=== PATIENT | male | born 1975 | race African-American/Black ===

== ENCOUNTER 2020-01-06 16:57 | Inpatient (IN) | payer MEDICAID ==
[~2020-01-06] VITALS: Ht 165.1 cm; Wt 59.4 kg
[2020-01-06 17:20] VITALS: BP 169/107
--- NOTE | 2020-01-06 17:30 | NUR ---
PT C/O N/V/D SINCE YESTERDAY. PT PRESENTS WITH DIAPHORESIS AND IRREGULAR HEAT BEATS, ABDOMINAL PAIN, AND GENERALIZED WEAKNESS. DENIES CP OR SOB AT THIS TIME. PT AOX 4 AFIBRILE , AMBULATORY WITH STEADY GAIT , PINK PALPEBRAL CONJUNCTIVA , ANICTERIC SCLERA , MOIST MUCUS MEMBRANE , SCE , FLAT SOFT ABDOMEN. PMH: DENIES
--- NOTE | 2020-01-06 17:57 | NUR ---
xray at bedside.
[2020-01-06 18:06] LABS: BASOPHILS % (AUTO) 0.3 % (0.0-2.0); HEMATOCRIT 50.5 % (36-52); HEMOGLOBIN 16.6 g/dL (12.0-18.0); LYMPHOCYTES # (AUTO) 1.1 K/uL (2.0-11.5); LYMPHOCYTES % (AUTO) 12.4 % (20.5-51.1); MEAN CORPUSCULAR HEMOGLOBIN 31 pg (27-31); MEAN CORPUSCULAR HGB CONC 33 g/dL (33-37); MONOCYTES # (AUTO) 0.2 K/uL (0.8-1.0); MONOCYTES % (AUTO) 2.6 % (1.7-9.3); NEUTROPHILS # (AUTO) 7.7 K/uL (1.8-7.7); NEUTROPHILS % (AUTO) 84.7 % (42.2-75.2); PLATELET COUNT (AUTO) 385 K/uL (140-450); RED BLOOD CELL COUNT(AUTO) 5.43 MIL/uL (4.20-6.10); RED CELL DISTRIBUTION WIDTH 14.2 % (11.6-13.7); WHITE BLOOD COUNT (AUTO) 9.1 K/uL (4.8-10.8)
--- NOTE | 2020-01-06 18:06 | NUR ---
ask pt permission to disclose information to his hector on the phone.
[2020-01-06] MEDS ORDERED: NACL 0.9% 1,000 ML IV ONE (18:10)
[2020-01-06 18:30] LABS: ALBUMIN 5.1 g/dL (3.4-5.0); ANION GAP 19.9 (8-16); CARBON DIOXIDE 24.7 mmol/L (21-32); CREATININE 1.1 mg/dL (0.6-1.3); POTASSIUM 3.6 mmol/L (3.5-5.1); TOTAL BILIRUBIN 0.6 mg/dL (0.0-1.0)
[2020-01-06 19:09] LABS: THYROID STIMULATING HORMONE 0.62 uIU/mL (0.34-3.74)
--- NOTE | 2020-01-06 19:18 | NUR ---
GAVE REPORT TO SERGIO BENITO , PT COMFORTABLE IN BED SIDE RAIL UP AND LOCK AT LOWEST POSITION.
[2020-01-06 19:22] LABS: PROTHROMBIN TIME 10.1 secs (10.8-13.4)
[2020-01-06] MEDS ORDERED: ENOXAPARIN 60 MG/0.6 ML SYR SUBQ SCH ×2 (19:55→22:06)
--- NOTE | 2020-01-06 20:19 | NUR ---
PT APPEARS TO BE SLEEPING. REMAINS CONNECTED TO BED SIDE MONITOR. R/R EQUAL, AND UNLABORED. NO DISTRESS NOTED. SIDE RAIL X2, BED IN LOW POSITION WILL CONTINUE TO MONITOR.
--- NOTE | 2020-01-06 20:54 | NUR ---
Patient will be admitted to care of DR. SENA. Admited to TELE. Will go to room 105 A. Belongings list completed. Report to SERGIO SANDERS.
--- NOTE | 2020-01-06 21:20 | NUR ---
INFORMED DR. SENA THAT THE PTS' BP IS 150/112 (124); 116 HEART RATE; AND THAT ON THE TELEMETRY STRIP UNCONTROLLED AFIB AND PVC'S
[2020-01-06] MEDS ORDERED: guaiFENesin DM 200/20 MG-10 ML 10 ML UDC PO PRN (21:35)
[2020-01-06] MEDS ORDERED: ZOLPIDEM 5 MG TAB PO PRN (21:35)
[2020-01-06] MEDS ORDERED: POTASSIUM CHLORIDE 10 MEQ TABER PO PRN (21:35)
[2020-01-06] MEDS ORDERED: HYDROcodone/APAP 7.5/325 MG 1 TAB PO PRN (21:35)
[2020-01-06] MEDS ORDERED: DOCUSATE SODIUM 100 MG GELCAP PO PRN (21:35)
[2020-01-06] MEDS ORDERED: ACETAMINOPHEN 325 MG TAB PO PRN (21:35)
[2020-01-06] MEDS ORDERED: LOVENOX 1MG/KG Q12H SUBQ SCH (21:45)
[2020-01-06] MEDS ORDERED: DILTIAZEM 25 MG/5 ML VIAL IVP SCH ×2 (21:45→22:40)
[2020-01-06 22:22] LABS: CHOL/HDL RATIO 2.4 (1-4.5); FREE T4 (FREE THYROXINE) 1.49 ng/dL (0.76-1.46); PHOSPHORUS 3.8 mg/dL (2.5-4.9)
--- NOTE | 2020-01-06 22:41 | NUR ---
PT GIVEN 1ST DOSE OF CARDIZEM, WILL INFORM DR. SENA THE VITALS SIGNS [place] HEART RATE AFTER GIVING THE CARDIZEM
[2020-01-06] MEDS: NACL 0.9% 1,000 ML IV SCH (23:06)
--- NOTE | 2020-01-06 23:07 | NUR ---
DR. SENA HAS AN 2ND DOSE OF CARDIZEM 15 MG (3 ML) BUT INFORMED HIM THAT THE PT HAS A HEART RATE OF 80 BPM NOW AND THAT BP IS STILL HIGH AT 153/103 (130). HE SAID TO HOLD ORDER OF 2ND DOSE. Addendum: 01/06/20 at 2312 by Beverly Norwood RN HOLD 2ND DOSE ORDER OF 2240 -15 MG(3ML) Addendum: 01/07/20 at 0326 by Beverly Norwood RN HERT RATE IS 89 AND NOT 80
--- NOTE | 2020-01-06 23:20 | NUR ---
PT VOMITING 2X, WILL ADMINISTER ZOFRAN PRN N/V
--- NOTE | 2020-01-06 23:21 | NUR ---
PT SAID HE CAME FROM [facility] MONTHS AGO, INFORMED DR. SENA, ORDERED LIBORIO COVID 19, WILL CARRY OUT ORDERS
[2020-01-06] MEDS: ONDANSETRON 4 MG/2 ML VIAL IM/IVP PRN (23:27)
--- NOTE | 2020-01-06 23:42 | NUR ---
INFORMED DR. SENA THAT PT'S HEART RATE WENT BACK TO 110 BPM; WITH COUPLETS IN THE TELEMONITOR STRIP AND THAT HIGH BLOOD PRESSURE NOTED AT 150/ 101, HEART RATE 110;
[2020-01-07] VITALS: BP 150/101
--- NOTE | 2020-01-07 01:23 | NUR ---
DR SENA SAID TO GO AHEAD AND GIVE THE 2ND DOSE OF CARDIZEM 15 MG ( THAT WAS SCHEDULED FOR 2239)
--- NOTE | 2020-01-07 02:23 | NUR ---
REASSESSED AFTER 2ND DOSE OF CARDIZEM GIVEN, PT STILL HAVE VITAL SIGNS: 141/101 ; HEART RATE 109, DR. SENA AWARE, PT SAID TO CONTINUE MONITORING PATIENT
[2020-01-07 04:00] VITALS: BP 141/101
[2020-01-07 06:19] LABS: BASOPHILS % (AUTO) 0.1 % (0.0-2.0); HEMATOCRIT 47.6 % (36-52); HEMOGLOBIN 15.9 g/dL (12.0-18.0); LYMPHOCYTES # (AUTO) 0.7 K/uL (2.0-11.5); LYMPHOCYTES % (AUTO) 8.7 % (20.5-51.1); MEAN CORPUSCULAR HEMOGLOBIN 31 pg (27-31); MEAN CORPUSCULAR HGB CONC 34 g/dL (33-37); MEAN CORPUSCULAR VOLUME 93.1 fL (80-94); MONOCYTES # (AUTO) 0.4 K/uL (0.8-1.0); MONOCYTES % (AUTO) 4.4 % (1.7-9.3); NEUTROPHILS # (AUTO) 7.2 K/uL (1.8-7.7); NEUTROPHILS % (AUTO) 86.8 % (42.2-75.2); PLATELET COUNT (AUTO) 356 K/uL (140-450); RED BLOOD CELL COUNT(AUTO) 5.11 MIL/uL (4.20-6.10); RED CELL DISTRIBUTION WIDTH 14.4 % (11.6-13.7); WHITE BLOOD COUNT (AUTO) 8.3 K/uL (4.8-10.8)
[2020-01-07 06:32] LABS: ANION GAP 19.8 (8-16); CREATININE 0.9 mg/dL (0.6-1.3); POTASSIUM 3.8 mmol/L (3.5-5.1)
--- NOTE | 2020-01-07 07:00 | NUR ---
RECEIVED REPORT FROM PM RN, TOMMY. CC: VOMITING, DEHYDRATION, ETOH ABUSE, DIARRHEA. DX: VOMITING, NEW ONSET AFIB, ETOH GASTRITS. HX: POSITIVE MARIJUANA. NKA. IV: LT AC 20G RUNNING NS AT 60MLS. DIET: CARDIAC. A&OX4. CONSULT: KRISTINA (ACCOUNT SUPPORT REP) FREQUENT PVC, BIGEM, COUPLET, ST. PLAN: F/U WITH DR ACEVEDO, F/U DR SENA HIGH BP. MONITOR PAIN. MONITOR FOR VOMITING.
[2020-01-07 08:00] VITALS: BP 104/84
[2020-01-07] MEDS: ONDANSETRON 4 MG/2 ML VIAL IM/IVP PRN (08:01)
--- NOTE | 2020-01-07 08:01 | NUR ---
PT HAD 1 EPISODE OF VOMITING. 150MLS OF EMESIS. GAVE ZOFRAN AT 0801. WILL CONTINUE TO MONITOR.
--- NOTE | 2020-01-07 08:38 | NUR ---
PATIENT HAS BEEN SCREENED AND CATEGORIZED MODERATE NUTRITION RISK. PATIENT WILL BE SEEN WITHIN 3-5 DAYS OF ADMISSION. 01/09/20 01/11/[address]
[2020-01-07] MEDS ORDERED: PANTOPRAZOLE 40 MG TABEC PO SCH (09:00)
--- NOTE | 2020-01-07 09:01 | NUR ---
PASSED MEDICATIONS TO PT. NO COMPLAINTS OF PAIN OR FURTHER VOMITING.
[2020-01-07] MEDS: ENOXAPARIN 60 MG/0.6 ML SYR SUBQ SCH ×2 (09:09→20:19)
[2020-01-07 09:47] LABS: APPEARANCE,URINE CLEAR (CLEAR); BILIRUBIN,URINE 1+ (NEGATIVE); BLOOD, URINE 1+ (NEGATIVE); COLOR,URINE YELLOW (YELLOW); LEUKOCYTE ESTERASE ,URINE NEGATIVE (NEGATIVE); NITRITE, URINE NEGATIVE (NEGATIVE); UGLUCOSE NEGATIVE (NEGATIVE)
[2020-01-07 09:57] LABS: RBC,URINE 0-5 /HPF (0-5); WBC,URINE 0-5 /HPF (0-5)
[2020-01-07 10:00] LABS: BARBITURATE, URINE NEG ng/ml (NEG <=200); BENZODIAZEPINE, URINE NEG ng/mL (NEG <=200); CANNABINOID, URINE POS ng/mL (NEG <=50); COCAINE, URINE NEG ng/mL (NEG <=300); OPIATE, URINE NEG ng/mL (NEG <=2000); PHENCYCLIDINE SCREEN,URINE NEG ng/mL (NEG <=25)
--- NOTE | 2020-01-07 10:23 | NUR ---
DISCHARGE PLANNING: THIS IS A 44 Y/O MALE PATIENT FROM HOME, WHO CAME IN DUE TOINTRACTABLE NAUSEA AND VOMITING. NO KNOWN PAST MEDICAL HISTORY. INITIAL DIAGNOSIS OF VOMITING. CURRENT LABS INCLUDE WBC 8.3, H/H 15.9/47.6, NA/K 139/3.8, BUN/CREA 15/0.9, LIPASE 32, FREE T41.49. RAPID COVID TEST NEGATIVE. CXR NEGATIVE. CARDIO CONSULT IN PLACE. DC PLAN PENDING ON PATIENT'S RESPONSE TO TREATMENT. Addendum: 01/07/20 at 1131 by Isa Rudd CM ISIAH RESEARCH PROJECT MANAGER PROVIDED ME WITH AN UPDATED FACE SHEET WITH INSURANCE COVERAGE FOR THIS PATIENT.
--- NOTE | 2020-01-07 10:30 | NUR ---
SPOKE WITH PT REGARDING PLAN OF CARE ACCORDING TO DR SENA. PT WILL BE SEEN BY THE BRASSIERE CUP MOLD CUTTER.
--- NOTE | 2020-01-07 10:49 | NUR ---
SOCIAL WORK NOTE: Patient's Orientation Person Situation Place Time Information Provided By PATIENT Comments SW MET WITH PATIENT AT BEDSIDE TO COMPLETE ASSESSMENT AND VERIFY DEMOGRAPHICS. PATIENT REPORTED THAT HE LIVES AT [address] [place] [address]. Fire Equipment Repairer Inspector, Realtionship and Phone Number KIRTI MALAVE SIGNIFICANT OTHER [phone] Healthcare Power of Car Repairer No Does Patient Have a POLST No Identifying Problems No Social Work Triggers Is A Social Work Consult Needed No Mandate Report Filed No Explanation Of Identifying Problems PATIENT IS A 44-YEAR-OLD MALE ADMITTED FOR VOMITING. PATIENT REPORTED NO PMHX. PATIENT ALSO REPORTED NO HISTORY OF SUBSTANCE ABUSE OR MENTAL HEALTH. Admitted From Home Pre-Admission Level Of Functioning Status Independent/Ambulatory Level Of Functioning Comment PATIENT REPORTED THAT HE LIVES WITH AUNT IN [facility]. Prior Resources/Services Used In Last 12 Months No Prior Resources Used Prior DME No Prior DME Used Dialysis Comments PATIENT REPORTED THAT HE DOES NOT RECEIVE DIALYSIS. Living Situation Lives With Family House Patient Had Caregiver No Home Support No Caregiver Issues Financial Issues No Known Financial Issue Referral To The Financial Counselor Needed No Factors/Needs No D/C Needs Identified Explanation And Or Other Factors Affecting/Possible DC Needs PATIENT REPORTED THAT SIGNIFICANT OTHER, KIRTI MALAVE WILL PICK PATIENT UP AT DISCHARGE. Pt/Rep Participated In Discharge Plan Yes Patient/Family Agress With Discharge Plan Yes Discharge Plan Comments TENTATIVE DISCHARGE PLAN IS FOR PATIENT TO RETURN HOME. DC Plan Status Initiated
--- NOTE | 2020-01-07 11:32 | NUR ---
DR SOSA, TAX EVALUATOR WENT TO SEE PT REGARDING CHANGES IN EKG RHYTHMS.
[2020-01-07 12:00] VITALS: BP 161/86
--- NOTE | 2020-01-07 13:00 | NUR ---
ROUND COMPLETED. PT IS SLEEPING IN BED. RESPIRATIONS ARE EVEN AND UNLABORED. NO SIGNS OF DISTRESS.
[2020-01-07 16:00] VITALS: BP 125/82
[2020-01-07] MEDS: NACL 0.9% 1,000 ML IV SCH (16:18)
--- NOTE | 2020-01-07 17:17 | NUR ---
INTERVENTIONAL PAIN PHYSICIAN ARRIVED TO GIVE THE PT AN ECHOCARDIOGRAM.
--- NOTE | 2020-01-07 18:08 | NUR ---
ECHO COMPLETE. PT IS EATING DINNER. NO SIGNS OF DISTRESS. NO COMPLAINTS OF N/V/D. RESPIRATIONS ARE EVEN AND UNLABORED.
--- NOTE | 2020-01-07 19:19 | NUR ---
TRANSFER OF CARE TO PM RNJAIRO. PT IS RESTING IN BED. NO SIGNS OF DISTRESS. VS STABLE.
--- NOTE | 2020-01-07 19:25 | NUR ---
RECEIVED BEDSIDE ENDORSEMENT FROM SERGIO PEARSON. PATIENT IS AOX4, NO SOB, DENIES PAIN, AMBULATORY, LAC 20, INTACT INFUSING IVF, SAFETY MEASURES IN PLACE, PLAN OF CARE DISCUSSED, CALL LIGHT WITHIN REACH.
[2020-01-07 20:00] VITALS: BP 123/88
--- NOTE | 2020-01-07 20:18 | NUR ---
DUE MEDS GIVEN ORDERED, TOLERATED WELL, PATIENT SAID THAT HE WANTS TO GO HOME, I TOLD HIM WE HAVE TO WAIT FOR THE ECHO RESULT.
[2020-01-07] MEDS ORDERED: METOPROLOL 25 MG TAB PO SCH (21:00)
--- NOTE | 2020-01-07 21:30 | NUR ---
PATIENT INSISTED ON GOING HOME AMA. PATIENT SAID THAT HE HAS TO TAKE CARE OF HIS DAUGHTER AND THAT HIS HAD A STOKE. CHARGE NURSE, ASSISTANT FILM EDITOR AND DOCTOR JAIDA WAS AWARE. PATIENT IS NOT IN DISTRESS, ALL BELONGINGS GIVEN TO THE PATIENT, AMBULATORY, ACCOMPANIED BY SECURITY IN GOING OUT THE BUILDING.
[2020-01-08 08:08] LABS: T4 (THYROXINE) 9.5 ug/dL (4.5-12.0)
== END 2020-01-07 21:30 | disposition left against medical advice (07) | DRG 249 ==
LOC: MED 16:57 → MTU 19:54
PROVIDERS: ADMIT Family Medicine; ATTEND Family Medicine
DX: A08.4 Viral intestinal infection, unspecified (principal); Z20.828 Contact with and (suspected) exposure to other viral communicable diseases; Z53.29 Procedure and treatment not carried out because of patient's decision for other reasons; I48.91 Unspecified atrial fibrillation; E86.0 Dehydration; R73.9 Hyperglycemia, unspecified; R31.9 Hematuria, unspecified; F43.9 Reaction to severe stress, unspecified
CPT/HCPCS: 36415; 71045; 80048; 80053; 80305; 81001; 82150; 82948; 83036; 83690; 83735; 83880; 84100; 84436; 84439; 84443; 84479; 84484; 85025; 85610; 85730; 87081; 93005; 96360; 96372; 99285; J1650; J2405; J3490; J7030; Q0092